=== PATIENT | female | born 2000 ===

== ENCOUNTER 2021-10-15 23:08 | Outpatient (CLI) | payer OTHER ==
[~2021-10-15] VITALS: Ht 167.6 cm; Wt 86.7 kg
[2021-10-15 23:30] VITALS: BP 136/76
[2021-10-16] MEDS ORDERED: PREN29CH2 PO (03:53)
[2021-10-17] MEDS ORDERED: ACET325C5 PO (04:04)
== END 2021-10-16 00:06 | disposition home or self-care (01) ==
LOC: M LDO 23:08
PROVIDERS: ATTEND Obstetrics & Gynecology
DX: O47.1 False labor at or after 37 completed weeks of gestation (principal); Z3A.39 39 weeks gestation of pregnancy; O99.343 Other mental disorders complicating pregnancy, third trimester; F32.A Depression, unspecified; F41.9 Anxiety disorder, unspecified; Z14.1 Cystic fibrosis carrier; Z86.16 Personal history of COVID-19
CPT/HCPCS: 59025; G0378; G0463

== ENCOUNTER 2021-10-16 03:39 | Inpatient (IN) | payer OTHER ==
[~2021-10-16] VITALS: Ht 167.6 cm; Wt 86.1 kg
[2021-10-16] VITALS (37 sets, daily range): BP systolic 103–150; BP diastolic 57–100
[2021-10-16] MEDS ORDERED: PREN29CH2 PO (03:53)
[2021-10-16] MEDS ORDERED: HOME MED LIST COMPLETE! XX SCH (04:00)
[2021-10-16] MEDS ORDERED: diphenhydrAMINE 25MG CAP PO ONE (04:40)
[2021-10-16] MEDS ORDERED: BUTORPHANOL 2 MG/ML INJ (J0595) IV ONE (07:00)
[2021-10-16] MEDS ORDERED: PROMETHAZINE INJ 25 MG/ML VIAL (J2550) IV ONE (07:00)
[2021-10-16] MEDS ORDERED: LACTATED RINGER'S 1000 ML IV STA (10:37)
[2021-10-16] MEDS ORDERED: LR 1,000 ML IV SCH ×2 (10:40→14:55)
[2021-10-16] MEDS ORDERED: LIDOCAINE 1% MDV 20ML VIAL INFIL PRN (10:40)
[2021-10-16] MEDS ORDERED: OXYTOCIN DRIP 30 UNITS in IV 1 EA IV PRN (10:40)
[2021-10-16 10:44] LABS: HEMATOCRIT 32.1 % (36.0-47.0); HEMOGLOBIN 10.9 g/dl (12.0-15.5); MEAN CORPUSCULAR HEMOGLOBIN 30.5 pg (27.0-33.0); MEAN CORPUSCULAR VOLUME 89.9 fl (80.0-96.0); PLATELET COUNT, AUTOMATED 214 10^3/uL (150-450); RED BLOOD COUNT 3.57 10^6/uL (4.00-5.40); WHITE BLOOD COUNT 21.1 10^3/uL (4.0-10.0)
[2021-10-16] MEDS ORDERED: FENTANYL 2MCG/ML ROPIVACAINE 0.2% IN 0.9% NACL 100ML IVBAG As Ordered ONE ×2 (11:05→19:21)
[2021-10-16] MEDS ORDERED: EPIDURAL COMMENT XX SCH (12:50)
[2021-10-16] MEDS ORDERED: EPIDURAL/PCA KEYS XX PRN (12:50)
[2021-10-16] MEDS ORDERED: LACTATED RINGER'S 1000 ML IV PRN (12:50)
[2021-10-16] MEDS ORDERED: REFRIGERATOR IV KEYS XX PRN (12:50)
[2021-10-16] MEDS ORDERED: ePHEDrine SULFATE 25 MG/5 ML(5MG/ML) SYRINGE IV PRN (12:50)
[2021-10-16] MEDS ORDERED: ONDANSETRON 4MG/2ML VIAL IV PRN (12:50)
[2021-10-16] MEDS ORDERED: diphenhydrAMINE 50MG/ML VIAL (J1200) IV PRN (12:50)
[2021-10-16] MEDS ORDERED: NALOXONE INJ 0.4MG/1ML VIAL (J2310 PER 1MG) IV PRN (12:50)
[2021-10-16] MEDS: FENTANYL/ROPIVACAINE/NACL BAG 100 ML EPIDURAL SCH ×2 (14:37→19:26)
[2021-10-16] MEDS ORDERED: OXYTOCIN DRIP 30 UNITS in IV 1 EA IV SCH (14:55)
[2021-10-16] MEDS ORDERED: DOCUSATE SODIUM 100MG CAPSULE PO PRN (20:45)
[2021-10-16] MEDS ORDERED: MEASLES,MUMPS,RUBELLA VACCINE INJ (MMR-II) (90707) SC SCH (20:45)
[2021-10-16] MEDS ORDERED: DIBUCAINE 1% OINTMENT 30GM TOP PRN (20:45)
[2021-10-16] MEDS ORDERED: METHYLERGONOVINE MALEATE 0.2 MG TAB PO PRN (20:45)
[2021-10-16] MEDS ORDERED: RHOGAM 300 MCG (1500 IU) INJ (J2790) IM SCH (20:45)
[2021-10-16] MEDS ORDERED: ACETAMINOPHEN TAB 650MG DOSE (2X325MG) PO PRN (20:45)
[2021-10-16] MEDS: IBUPROFEN 800 MG TAB PO PRN (21:16)
[2021-10-17] MEDS ORDERED: ACET325C5 PO (04:04)
[2021-10-17] MEDS ORDERED: HOME MED LIST COMPLETE! XX SCH (04:05)
[2021-10-17 06:00] VITALS: BP 130/65
[2021-10-17] MEDS: PRENATAL VITAMINS CHEWABLE TABLET PO SCH (08:01)
[2021-10-17 10:00] VITALS: BP 123/70
[2021-10-17] MEDS: IBUPROFEN 800 MG TAB PO PRN (15:58)
[2021-10-17 18:00] VITALS: BP 113/73
[2021-10-18 05:35] VITALS: BP 125/83
[2021-10-18] MEDS ORDERED: PRENCHW PO (08:20)
[2021-10-18] MEDS ORDERED: COLA100C5 PO (08:20)
[2021-10-18] MEDS ORDERED: IBUP80TA PO (08:20)
[2021-10-18] MEDS: PRENATAL VITAMINS CHEWABLE TABLET PO SCH (08:31)
== END 2021-10-18 11:52 | disposition home or self-care (01) | DRG 807 ==
LOC: M LDO 03:39 → M LDI 10:15 → M OBS 22:27
PROVIDERS: ADMIT Registered Nurse; ATTEND Registered Nurse
PROC: 10E0XZZ Delivery of Products of Conception, External Approach (ICD-10-PCS; principal; 2021-10-16)
PROC: 10907ZC Drainage of Amniotic Fluid, Therapeutic from Products of Conception, Via Natural or Artificial Opening (ICD-10-PCS; 2021-10-16)
DX: O80 Encounter for full-term uncomplicated delivery (principal); Z37.0 Single live birth; Z3A.39 39 weeks gestation of pregnancy